=== PATIENT | female | born 1940 | race Caucasian/White ===

== ENCOUNTER 2019-01-10 13:44 | Emergency (ER) | payer MEDICARE ==
[2019-01-10] MEDS ORDERED: cloNIDine HCL 0.1 MG TAB PO ONE (14:05)
[2019-01-10] MEDS ORDERED: OMEP-126 PO (14:13)
[2019-01-10] MEDS ORDERED: ASPI-1471 PO (14:13)
[2019-01-10] MEDS ORDERED: VITA100T PO (14:13)
[2019-01-10] MEDS ORDERED: AMLO-125 PO (14:13)
[2019-01-10] MEDS ORDERED: METO25TA23 PO (14:13)
[2019-01-10] MEDS ORDERED: LEVO112T44 PO (14:13)
[2019-01-10 14:18] LABS: PLATELET COUNT, AUTOMATED 321 K/uL (150-450)
--- NOTE | 2019-01-10 14:33 | ER Report ---
History and Physical Time Seen By MD: 13:55 Hx. of Stated Complaint: HIGH BP, GALINDO, SHAKING, DISORIENTED, DIZZINESS, PALPITATIONS HPI/ROS CHIEF COMPLAINT: Hypertension HISTORY OF PRESENT ILLNESS: Patient is a 78-year-old female history of hypertension who is been off of her hypertensive meds since September. Patient had her self taken off due to exercise and diet felt that she was doing well [place] been [place] in altitude now for 8-9 days and noticed her blood pressure steadily climbing every day currently she is 220/111. She denies any chest pain shortness of breath nausea vomiting diarrhea fever chills or additional complaints noted. Patient does state that she has had episodic palpitations comes and goes last was earlier this morning patient currently asymptomatic REVIEW OF SYSTEMS: Respiratory: No cough, no dyspnea. Cardiovascular: No chest pain, no palpitations. Gastrointestinal: No vomiting, no abdominal pain. Musculoskeletal: No back pain. Remainder of the 14 system rev: Yes Allergies: Coded Allergies: Sulfa (Sulfonamide Antibiotics) (Verified Allergy, Intermediate, RASH, 01/10/19) Home Meds Reported Medications Amlodipine Besylate (AMLODIPINE BESYLATE) 5 Mg Tablet, 0.5 TAB PO PRN, TAB 01/10/19 Vitamin E Acid Succinate (VITAMIN E) 100 Unit Tablet, 100 UNIT PO 01/10/19 Metoprolol Succinate (METOPROLOL SUCCINATE) 25 Mg Tab.er.24h, 6.25 MG PO PRN, TAB 01/10/19 Aspirin (ASPIR 81) 81 Mg Tablet.dr, 81 MG PO QDAY, TAB 01/10/19 Omeprazole (OMEPRAZOLE) 20 Mg Capsule.dr, 1 CAP PO PRN, CAP 01/10/19 Levothyroxine Sodium (SYNTHROID) 112 Mcg Tablet, 112 MCG PO QDAY, TAB 01/10/19 Reviewed Nurses Notes: Yes Old Medical Records Reviewed: Yes Constitutional Vital Sign - Last 24 Hours 01/10/19 01/10/19 01/10/19 01/10/19 13:54 14:00 14:15 14:40 Temp 97.9 Pulse 76 72 Resp 16 15 15 B/P (MAP) 229/111 192/92 (125) Pulse Ox 94 97 90 O2 Delivery Room Air 01/10/19 01/10/19 01/10/19 01/10/19 14:45 15:00 15:15 15:53 Pulse 65 67 62 Resp 16 13 B/P (MAP) 185/85 (118) 163/88 (113) 133/76 (95) Pulse Ox 94 88 82 O2 Flow Rate 2.0 Physical Exam General Appearance: The patient is alert, has no immediate need for airway protection and no current signs of toxicity. [ ] Eyes: Pupils equal and round no injection. Respiratory: Chest is non tender, lungs are clear to auscultation. Cardiac: regular rate and rhythm [ ] Gastrointestinal: Abdomen is soft and non tender, no masses, bowel sounds normal. Musculoskeletal: Neck: Neck is supple and non tender. Extremities have full range of motion and are non tender. Skin: No rashes or lesions. [ ] DIFFERENTIAL DIAGNOSIS: After history and physical exam differential diagnosis was considered for hypertensive urgency apprehensive emergency Medical Decision Making Data Points Result Diagram: 01/10/19 1403 01/10/19 1403 Laboratory Hematology Test 01/10/19 14:03 White Blood Count 4.8 k/uL (4.5-11.0) Red Blood Count 4.76 M/uL (4.17-5.56) Hemoglobin 14.4 g/dL (12.0-16.0) Hematocrit 42.5 % (34.0-47.0) Mean Corpuscular Volume 89.3 fL (80.0-96.0) Mean Corpuscular Hemoglobin 30.2 pg (26.0-33.0) Mean Corpuscular Hemoglobin Concent 33.8 g/dL (32.0-36.0) Red Cell Distribution Width 13.5 % (11.5-14.5) Platelet Count 321 K/uL (150-450) Mean Platelet Volume 6.6 fL (7.2-11.1) L Neutrophils (%) (Auto) 39.4 % (39.4-72.5) Lymphocytes (%) (Auto) 46.0 % (17.6-49.6) Monocytes (%) (Auto) 9.8 % (4.1-12.4) Eosinophils (%) (Auto) 4.3 % (0.4-6.7) Basophils (%) (Auto) 0.5 % (0.3-1.4) Nucleated RBC Relative Count (auto) 0.0 /100WBC Neutrophils # (Auto) 1.9 K/uL (2.0-7.4) L Lymphocytes # (Auto) 2.2 K/uL (1.3-3.6) Monocytes # (Auto) 0.5 K/uL (0.3-1.0) Eosinophils # (Auto) 0.2 K/uL (0.0-0.5) Basophils # (Auto) 0.0 K/uL (0.0-0.1) Nucleated RBC Absolute Count (auto) 0.00 K/uL Chemistry Test 01/10/19 14:03 Sodium Level 140 mmol/L (137-145) Potassium Level 3.6 mmol/L (3.5-5.0) Chloride Level 104 mmol/L (98-107) Carbon Dioxide Level 24 mmol/L (22-31) Blood Urea Nitrogen 12 mg/dl (7-18) Creatinine 0.90 mg/dl (0.52-1.04) Glomerular Filtration Rate Calc > 60.0 Random Glucose 96 mg/dl (75-110) Calcium Level 9.8 mg/dl (8.4-10.2) Total Bilirubin 0.5 mg/dl (0.2-1.3) Aspartate Amino Transf (AST/SGOT) 25 U/L (0-35) Alanine Aminotransferase (ALT/SGPT) 31 U/L (0-56) Alkaline Phosphatase 82 U/L (0-126) Troponin I < 0.012 ng/ml Total Protein 8.0 g/dl (6.3-8.2) Albumin 4.7 g/dl (3.5-5.0) Coagulation Test 01/10/19 14:03 D-Dimer Quantitative (PE/DVT) 1.35 ug/ml (0-0.50) Urinalysis Test 01/10/19 14:20 Urine Color Colorless Urine Clarity Clear Urine pH 7.0 pH (4.8-9.5) Urine Specific [place] 1.002 Urine Protein Negative mg/dL (NEGATIVE) Urine Glucose (UA) Negative mg/dL (NEGATIVE) Urine Ketones Negative mg/dL (NEGATIVE) Urine Blood Negative (NEGATIVE) Urine Nitrite Negative (NEGATIVE) Urine Bilirubin Negative (NEGATIVE) Urine Urobilinogen Negative mg/dL (0.2-1.9) Urine Leukocyte Esterase Negative (NEGATIVE) Urine RBC None /HPF (0-2/HPF) Urine WBC <1 /HPF (0-5/HPF) Urine Squamous Epithelial Cells None /LPF (</=FEW) Urine Bacteria Negative /HPF (NONE-FEW) Urine Mucus None /HPF (NONE-FEW) ED Course/Re-evaluation ED Course ED course residual female comes in with hypertension current blood pressure is now 111/72 she was 212/111 when she arrived 0.[address] angiogram his cardiac markers EKG and enzymes were all negative she has her on metoprolol which she'll initiate diagnosis hypertensive urgency Decision to Disposition Date: Jan 10, 2019 Decision to Disposition Time: 16:21 Depart Departure Latest Vital Signs Vital Signs Date Time Temp Pulse Resp B/P (MAP) Pulse Ox O2 Delivery O2 Flow Rate FiO2 01/10/19 15:53 2.0 01/10/19 15:15 62 13 133/76 (95) 82 01/10/19 13:54 97.9 Room Air Impression: Primary Impression: Hypertensive urgency Condition: Improved Disposition: HOME OR SELF-CARE Patient Instructions: Hypertensive Crisis (DC) JANAE VIDAL MD Jan 10, 2019 14:33
--- NOTE | 2019-01-10 14:36 | EKG ---
[place] [facility] [place] NAME: SEMAJ JOY : [id number] MR: [id number] V: [id number] EXAM DATE: ORDERING PHYSICIAN: JANAE VIDAL TECHNOLOGIST: IVÁN Mai Reason : DIZZY Blood Pressure : / mmHG Vent. Rate : 066 BPM Atrial Rate : 066 BPM P-R Int : 206 ms QRS Dur : 148 ms QT Int : 458 ms P-R-T Axes : 044 054 021 degrees QTc Int : 480 ms Normal sinus rhythm Right bundle branch block Abnormal ECG No previous ECGs available Confirmed by Mina Mueller ([id number]) on 01/10/2019 9:26:46 PM Referred By: MARCY Confirmed By:Mina Dsouza
[2019-01-10] MEDS ORDERED: IOPAMIDOL 76% 100 ML INFUS BTL 100 ML ONE (15:01)
[2019-01-10] MEDS ORDERED: NS(*) 0.9% 50 ML BAG 50 ML ONE (15:01)
--- NOTE | 2019-01-10 15:13 | RADIOLOGY IMAGING REPORT ---
FACILITY: [facility] - [place] PATIENT NAME: Larisa Jimenez : 1940 MR: [id number] V: [id number] EXAM DATE: ORDERING PHYSICIAN: JANAE VIDAL TECHNOLOGIST: Location: [facility] Patient: Larisa Jimenez : 1940 Visit/Account:[id number] Date of Sevice: 01/10/2019 CHEST PA LAT History: cp FINDINGS: Comparison studies: None. Tubes and Lines: None. Lungs and pleura: Very minimal left basilar discoid atelectasis or scar. Otherwise Well aerated. No evidence of focal consolidation or pleural effusions. Mediastinum: normal. Cardiac silhouette: normal . Osseous structures: Unremarkable for age . IMPRESSION: Minimal left basilar atelectasis versus scar. Otherwise negative exam Report Dictated By: Martin Jolly MD at 01/10/2019 3:05 PM Report E-Signed By: Martin Jolly MD at 01/10/2019 3:06 PM [id number]
[2019-01-10 16:00] VITALS: BP 111/72
--- NOTE | 2019-01-10 16:14 | RADIOLOGY IMAGING REPORT ---
FACILITY: [facility] PATIENT NAME: Larisa Jimenez : 1940 MR: [id number] V: [id number] EXAM DATE: ORDERING PHYSICIAN: JANAE VIDAL TECHNOLOGIST: Location: [facility] [place] Patient: Larisa Jimenez : 1940 Visit/Account:[id number] Date of Sevice: 01/10/2019 EXAMINATION: CTA of the chest with IV contrast HISTORY: Hypertension. TECHNIQUE: Pulmonary embolus protocol - Thin axial CT images of the chest were obtained with IV con trast during maximal pulmonary arterial opacification. Reconstruction of the source data includes mul tiplanar 2D coronal and sagittal reconstructed images, and 3D coronal and sagittal MIP images. Repres entative images have been stored on PACS. One of the following dose optimization techniques was utilized in the performance of this exam: Autom ated exposure control; adjustment of the mA and/or kV according to the patient's size; or use of an i terative reconstruction technique. Specific details can be referenced in the facility's radiology C T exam operational policy. Contrast: 75 mL of IV [id number]. COMPARISON: None. FINDINGS: Pulmonary arteries: The pulmonary arteries are well opacified, without suspicious filling defect. Heart, aorta, and great vessels: Normal caliber thoracic aorta. Normal heart size. Coronary artery c alcifications. No pericardial effusion. Lungs and pleura: The lungs are clear. No focal consolidation. No pleural effusion or pneumothorax. The central airways are patent. Mediastinum and georgi: Small hiatal hernia. Visualized upper abdomen: Cholecystectomy. Chest wall: Negative. Bones: No acute osseous findings. Chronic multilevel degenerative changes along the spine. IMPRESSION: 1. No evidence of pulmonary embolism. 2. No other acute findings in the chest. The lungs are clear. 3. Small hiatal hernia. 4. Cholecystectomy. Report Dictated By: Tommie Richards MD at 01/10/2019 4:01 PM Report E-Signed By: Tommie Richards MD at 01/10/2019 4:07 PM WSN:[id number]
--- NOTE | 2019-01-10 16:16 | RADIOLOGY IMAGING REPORT ---
FACILITY: [facility] - [place] PATIENT NAME: Larisa Jimenez : 1940 MR: [id number] V: [id number] EXAM DATE: ORDERING PHYSICIAN: JANAE VIDAL TECHNOLOGIST: Location: [facility] Patient: Larisa Jimenez : 1940 Visit/Account:[id number] Date of Sevice: 01/10/2019 EXAMINATION: CT head without IV contrast HISTORY: Hypertension. TECHNIQUE: Axial CT images of the head were obtained from the vertex to the skull base without IV c ontrast, with coronal and sagittal 2D reconstructed images. One of the following dose optimization techniques was utilized in the performance of this exam: Autom ated exposure control; adjustment of the mA and/or kV according to the patient's size; or use of an i terative reconstruction technique. Specific details can be referenced in the facility's radiology C T exam operational policy. COMPARISON: None. FINDINGS: Mild generalized parenchymal atrophy, with patchy low attenuation in the deep white matter compatible with chronic small vessel ischemic change. Intracranial vascular calcifications. No CT evidence of intracranial hemorrhage, mass lesion, or acute infarct. No midline shift or extra-a xial fluid collections. Trinh-white differentiation is maintained. The calvarium is intact. The partially visualized paranasal sinuses and mastoid air cells are unopaci fied. IMPRESSION: No CT evidence of acute intracranial pathology. Report Dictated By: Tommie Richards MD at 01/10/2019 4:07 PM Report E-Signed By: Tommie Richards MD at 01/10/2019 4:09 PM WSN:[id number]
== END 2019-01-10 16:34 | disposition home or self-care (01) ==
LOC: ER 14:05
DX: I16.0 Hypertensive urgency (principal)
CPT/HCPCS: 70450; 71046; 71275; 81001; 84484; 85025; 85379; 93005; 99284; A9270; J7050; Q9967; 82040; 82247; 82310; 82374; 82435; 82565; 82947; 84075; 84132; 84155; 84295; 84450; 84460; 84520